=== PATIENT | female | born 1940 | race Caucasian/White ===

== ENCOUNTER → 2016-11-16 | Outpatient (CLI) | payer OTHER ==
[~2016-11-16] MED LIST: CMD5 PO; HYZAAR PO; LPR25 PO; PRLSR20 PO
[2016-11-16 12:40] LABS: ALT/SGPT 14 U/L (12-78); AST/SGOT 17 U/L (15-37); BLOOD UREA NITROGEN 17 mg/dl (7-18); BUN/CREATININE RATIO 17.6 (10-20); CARBON DIOXIDE 29 mmol/L (21-32); CHLORIDE 104 mmol/L (98-107); CREATININE 0.99 mg/dl (0.60-1.20); GLUCOSE 104 mg/dl (70-99); POTASSIUM 3.8 mmol/L (3.5-5.1); SODIUM 139 mmol/L (136-145)
[2016-11-16 12:42] LABS: ALB/GLOB RATIO 0.9 (0.9-2); ALKALINE PHOSPHATASE 58 U/L (45-117)
[2016-11-16 13:22] LABS: ESTIMATED AVERAGE GLUCOSE 134 mg/dl; HA1C FLAG Normal (Normal)
== END | disposition home or self-care (01) ==
LOC: C.LABPVFM 08:50
PROVIDERS: ATTEND Family Medicine
DX: I10 Essential (primary) hypertension (principal); R73.9 Hyperglycemia, unspecified

== ENCOUNTER → 2017-01-27 | Outpatient (CLI) | payer OTHER ==
--- NOTE | 2017-01-27 13:27 | MAMMOGRAPHY REPORT ---
BILATERAL DIGITAL SCREENING MAMMOGRAM WITH CAD: 01/27/2017 CLINICAL HISTORY: Routine screening. Patient has no complaints. TECHNIQUE: Current study was also evaluated with a Computer Aided Detection (CAD) system. Bilateral CC and MLO views were obtained. COMPARISON: Comparison is made to exams dated: 01/22/2016 mammogram, 01/20/2015 mammogram, 01/17/2014 yogi mogram, 01/16/2013 mammogram, 01/16/2012 mammogram, and 01/12/2011 mammogram - [facility] . BREAST COMPOSITION: There are scattered areas of fibroglandular density in both breasts. FINDINGS: No suspicious masses, calcifications, or areas of architectural distortion are noted in ei ther breast. There has been no significant interval change compared to prior exams. Scattered bilater al benign-appearing calcifications are not significantly changed. Bilateral asymmetries are stable. IMPRESSION: ACR BI-RADS CATEGORY 2: BENIGN There is no mammographic evidence of malignancy. A 1 year screening mammogram is recommended. The pa tient will receive written notification of the results. Approximately 10% of breast cancers are not detected with mammography. A negative mammographic report should not delay biopsy if a clinically suggestive mass is present. Joy Rivas M.D. /:01/27/2017 10:52:52 Putty And Patch Worker: Katt MAXWELL(Arabella)(Chiquita)(JAYESH), [facility] letter sent: Normal 1/2 BI-RADS Code: ACR BI-RADS Category 2: Benign
== END | disposition home or self-care (01) ==
LOC: C.MAMM 10:03
PROVIDERS: ATTEND Obstetrics & Gynecology
DX: Z12.31 Encounter for screening mammogram for malignant neoplasm of breast (principal)

== ENCOUNTER → 2017-05-12 | Outpatient (CLI) | payer OTHER ==
[2017-05-12 12:27] LABS: ESTIMATED AVERAGE GLUCOSE 131 mg/dl; HA1C FLAG Normal (Normal)
[2017-05-12 12:52] LABS: ALT/SGPT 13 U/L (12-78); AST/SGOT 12 U/L (15-37); BLOOD UREA NITROGEN 29 mg/dl (7-18); BUN/CREATININE RATIO 26.1 (10-20); CALCIUM 9.6 mg/dl (8.5-10.1); CARBON DIOXIDE 25 mmol/L (21-32); CHLORIDE 107 mmol/L (98-107); GLUCOSE 109 mg/dl (70-99); POTASSIUM 3.5 mmol/L (3.5-5.1); SODIUM 139 mmol/L (136-145)
[2017-05-12 12:55] LABS: ALKALINE PHOSPHATASE 61 U/L (45-117)
== END | disposition home or self-care (01) ==
LOC: C.LABPVFM 12:22
PROVIDERS: ATTEND Family Medicine
DX: I10 Essential (primary) hypertension (principal); R73.9 Hyperglycemia, unspecified; F41.9 Anxiety disorder, unspecified

== ENCOUNTER → 2017-11-08 | Outpatient (CLI) | payer OTHER ==
[2017-11-08 13:38] LABS: HEMOGLOBIN A1C 6.2 % (4.5-5.6)
[2017-11-08 13:56] LABS: ALBUMIN 3.8 gm/dl (3.4-5.0); ALT/SGPT 14 U/L (12-78); BLOOD UREA NITROGEN 19 mg/dl (7-18); CALCIUM 10.3 mg/dl (8.5-10.1); CARBON DIOXIDE 26 mmol/L (21-32); CREATININE 0.91 mg/dl (0.60-1.20); GLUCOSE 103 mg/dl (70-99); POTASSIUM 3.7 mmol/L (3.5-5.1); SODIUM 136 mmol/L (136-145)
[2017-11-08 14:01] LABS: ALKALINE PHOSPHATASE 67 U/L (45-117); AST/SGOT 17 U/L (15-37); TOTAL PROTEIN 7.6 gm/dl (6.4-8.2)
[2017-11-08 14:43] LABS: BASO ABS # 0.05 K/uL (0-0.2); EOS % 1.5 %; EOS ABS # 0.07 K/uL (0-0.5); HEMATOCRIT 34.8 % (37-47); HEMOGLOBIN 10.6 g/dL (12.0-16.0); LYMPH % 20.4 %; LYMPH ABS # 0.98 K/uL (1.2-3.4); MEAN CORPUSCULAR HEMOGLOBIN 22.2 pg (25-34); MEAN CORPUSCULAR HGB CONC 30.5 g/dl (32-36); MEAN PLATELET VOLUME 11.2 fL (7.4-10.4); MONO % 9.1 %; MONO ABS # 0.44 K/uL (0.11-0.59); NEUT ABS # 3.27 K/uL (1.4-6.5); PLATELET COUNT 353 K/uL (130-400); RED CELL DISTRIBUTION WIDTH CV 18.6 % (11.5-14.5); WHITE BLOOD COUNT 4.81 K/uL (4.8-10.8)
== END | disposition home or self-care (01) ==
LOC: C.LABPVFM 12:44
PROVIDERS: ATTEND Family Medicine
DX: K25.9 Gastric ulcer, unspecified as acute or chronic, without hemorrhage or perforation (principal); I10 Essential (primary) hypertension; D68.51 Activated protein C resistance; R73.9 Hyperglycemia, unspecified; G47.00 Insomnia, unspecified; F41.9 Anxiety disorder, unspecified

== ENCOUNTER → 2017-12-06 | Outpatient (CLI) | payer OTHER ==
[2017-12-06 14:40] LABS: BLOOD UREA NITROGEN 13 mg/dl (7-18); CALCIUM 9.5 mg/dl (8.5-10.1); CARBON DIOXIDE 28 mmol/L (21-32); CREATININE 0.98 mg/dl (0.60-1.20); GLUCOSE 105 mg/dl (70-99); POTASSIUM 4.1 mmol/L (3.5-5.1); SODIUM 136 mmol/L (136-145)
[2017-12-06 14:50] LABS: TRANSFERRIN 344 mg/dl (200-360)
== END | disposition home or self-care (01) ==
LOC: C.LABPVFM 09:46
PROVIDERS: ATTEND Family Medicine
DX: E83.52 Hypercalcemia (principal); D64.9 Anemia, unspecified

== ENCOUNTER 2022-10-30 11:25 | Inpatient (IN) ==
[2022-10-30] MEDS ORDERED: FUROSEMIDE 40 MG/4 ML VIAL IV ONE (12:03)
[2022-10-30] MEDS ORDERED: METOPROLOL TARTRATE 1 MG/ML VIAL IV STA (12:21)
[2022-10-30] MEDS ORDERED: NYSTATIN POWDER 15GM BTL EXT STA (12:30)
[2022-10-30 12:37] LABS: Basophils # (auto) 0.06 K/uL (0-0.2); Basophils % (auto) 0.7 %; Eosinophils # (auto) 0.08 K/uL (0-0.50); Eosinophils % (auto) 0.9 %; Hematocrit (blood only) 39.7 % (37.0-47.0); Hemoglobin 13.4 g/dl (12.0-16.0); Immature Granulocytes # (auto) 0.03 K/uL (0.01-0.20); Immature Granulocytes % (auto) 0.3 %; Lymphocytes # (auto) 0.79 K/uL (1.2-3.4); Lymphocytes % (auto) 8.9 %; Mean Corpuscular Hemoglobin 31.9 pg (25.0-34.0); Mean Corpuscular Hgb Conc 33.8 g/dL (32.0-36.0); Mean Corpuscular Volume 94.5 fL (80.0-100.0); Mean Platelet Volume 11.6 fL (9.4-12.4); Monocytes # (auto) 0.75 K/uL (0.11-0.59); Monocytes % (auto) 8.5 %; Neutrophils # (auto) 7.14 K/uL (1.40-6.50); Neutrophils % (auto) 80.7 %; Platelet Count 250 K/uL (130-400); RDW Coefficient of Variation 12.6 % (11.5-14.5); RDW Standard Deviation 43.8 fL (36.4-46.3); White Blood Count 8.85 K/ul (4.8-10.8)
[2022-10-30 12:46] LABS: Albumin Globulin Ratio 1.2 (0.9-2); Albumin Level 3.8 gm/dl (3.4-5.0); BUN Creatinine Ratio 31.7 (10-20); Bilirubin,Total 0.8 mg/dl (0.2-1.0); Calcium 9.8 mg/dl (8.5-10.1); Creatinine Clr Calc Pharmacy 51.1 ml/min; Est GFR (Non-African American) 51.8 ml/min; Globulin 3.1 gm/dl (2.5-4.0); Magnesium 1.5 mg/dl (1.7-2.4); Potassium 4.1 mmol/L (3.5-5.1); Total Protein 6.9 gm/dl (6.0-8.3)
[2022-10-30 12:52] LABS: Troponin I High Sensitivity 8.4 pg/ml (0-14)
--- NOTE | 2022-10-30 13:09 | XRay Report ---
XR chest 1V portable HISTORY: Dyspnea COMPARISON: Chest 06/17/2015. FINDINGS: No pneumothorax. No pleural effusions. The cardiac silhouette remains enlarged. There is a large hiatus hernia again noted. No new focal lung consolidations to suggest a pneumonia. No evidence for pulmonary edema. IMPRESSION: 1. Stable cardiomegaly. 2. Large hiatus hernia, unchanged. ACT 112: Negative or not required by law. Electronically signed by: Anshu Cleaning M.D. 10/30/2022 1:08 PM
[2022-10-30 14:08] LABS: Appearance Urine Clear (Clear); Bacteria Urine Automated 3+ (Negative); Bilirubin Urine Negative (Negative); Blood Urine Negative (Negative); Cast Urine Automated 0 /lpf (0-5); Color Urine Yellow; Epithelial Cell Urine Auto 0-5 /lpf (0-5); Glucose Urine UA Negative (Negative); Ketones Urine Negative (Negative); Leukocyte Esterase Urine Trace (Negative); Nitrite Urine Negative (Negative); Protein Urine Negative (Negative); RBC Urine Automated 0-4 /hpf (0-4); Specific Gravity Urine 1.008 (1.000-1.030); Urobilinogen Urine Negative (Negative); pH Urine 5.5 (4.5-7.5)
[2022-10-30] MEDS: MAGNESIUM SULFATE / D5W 1 GM/100 ML BAG IV SCH ×2 (14:34→15:14)
--- NOTE | 2022-10-30 15:07 | History & Physical Report ---
Date of Service October 30, 2022 Assessment & Plan (1) Edema of right lower leg due to venous stasis: Plan: - No pulmonary edema on CXR, will check complete echo - dorinda Martin - Low sodium diet (2) Atrial fibrillation with RVR: Plan: - Admit to med/tele for monitoring - Check complete echo - Already on Eliquis for the Factor V Leiden and hx of PE/DVT (3) Factor V Leiden mutation: Plan: - Continue Eliquis 2.5 mg BID (4) Benign hypertension: Plan: - Continue home medications (5) Pain of right heel: Plan: - Skin break down and tender to palpation right heel causing patient not to be able to ambulate - Wound evaluation History of Present Illness Chief Complaint: edema bilateral lower legs, pain right heel Primary Care Provider: MD Laverne Connellysarthak Bookertonyajosias is a 81 year old female with a past medical history of Factor V Leiden with previous VTE (PE and DVT) on Eliquis 2.5mg BID, HTN, Obesity and GERD who presented to the ER today for complaints of persistent lower extremity selling and hard to ambulate due to the swelling and also right heel pain. Patient tells me that her leg swelling is mostly chronic but has significantly increased over the past 3 weeks. She states both lower legs have been oozing serous fluid for the past 2-3 weeks. Patient is noted to be up almost 40# from last year. She denies any chest pain, cough, fever, urinary symptoms. She admits to some slight SOB with walking fast, but this is not new. She denies ever having A Fib in the past. I do not see any previous A Fib on previous EKGs and she has not had any echo in this EMR system. Allergies Allergy/AdvReac Type Severity Reaction Status Date / Time Penicillins Allergy Intermediate Hives Verified 10/30/22 15:07 Home Medications Medication Instructions Recorded Confirmed Type metoprolol tartrate 25 mg tablet 25 mg PO BID #60 tabs 11/24/21 10/30/22 Rx losartan 100 1 tab PO DAILY #90 tabs 01/25/22 10/30/22 Rx mg-hydrochlorothiazide 12.5 mg tablet apixaban 2.5 mg tablet (Eliquis) 2.5 mg PO BID #60 tabs 01/05/23 03/19/23 Rx omeprazole 20 mg capsule,delayed 20 mg PO DAILY #90 caps 10/25/22 10/30/22 Rx release Past Med/Surg History Medical History Anemia Bilateral pulmonary embolism DVT (deep venous thrombosis) Surgical History No history of previous surgery Family History Denies family history of Ovarian cancer Prostate cancer Myocardial infarction Breast cancer Colorectal cancer Social History Smoking Status: Never smoker Second Hand Exposure: No; Hx Alcohol Use: No Hx Substance Use: No Preferred Language: Rwandan Communication Ability: Effective Hearing Ability: Hard of Hearing Department Coordinator Required: No Beliefs That Will Affect Care: None marital status: Current Living Situation: Alone current occupational status: retired How many Children do You have: 2 Feels Safe at Home: Yes Childhood Exposure to Second-Hand Smoke: No caffeine: Yes (soda ) Dental Care, Regularly: No Physical Activity Frequency: Does not Exercise Seatbelt Use: always Sunscreen Use: No Review of Systems Constitutional: + weight gain; no fever and no chills Respiratory: no cough, no dyspnea and no wheezing Cardiovascular: + edema; no chest pain, no syncope and no calf pain A dditional Comments: Admits to mild SOB when trying to walk fast Gastrointestinal: no abdominal pain, no nausea and no vomiting Genitourinary: no dysuria, no difficulty urinating, no urinary frequency, no urinary hesitancy and no urinary urgency Integumentary: Thickened toe nails Right first toe Painful heels Physical Exam Constitutional: well nourished, + obese and + overweight; no acute distress Neck: trachea midline, no thyromegaly Respiratory: normal respiratory effort, lungs clear to auscultation Cardiovascular: Rate/Rhythm: + irregularly irregular Extremities: + edema and + varicosities; no calf tenderness mild delay in capillary refill Gastrointestinal (Abdomen): normal bowel sounds, soft, nontender, no hepatosplenomegaly Skin: venous stasis changes legs, no warmth extremities cool to touch Left heel with skin changes, possible early venous stasis ulcer Right heel with calcified area Psychiatric: A+Ox3, euthymic affect Results & Data Results & Data Vital Signs (Past 12 Hours) Vital Signs Temp Pulse Pulse Resp BP BP Pulse Ox 10/30/22 14:08 88 18 133/68 95 10/30/22 12:27 85 19 94 10/30/22 12:24 108 H 151/80 H 10/30/22 12:07 107 H 10/30/22 11:30 36.6 C 114 H 20 148/68 H 96 O2 Del Method 10/30/22 14:08 Room Air 10/30/22 12:27 Room Air 10/30/22 12:24 10/30/22 12:07 10/30/22 11:30 Room Air Laboratory Results Reviewed labs, CBC normal no leukocytosis and H&H, platelets also normal. Creatinine 1.01, Magnesium low at 1.5 and was replaced in the ED. LFTs are normal U/A with 3+ bacteria. Await C&S Diagnostic Findings Chest X-Ray 10/30/22 12:20 XR chest 1V portable HISTORY: Dyspnea COMPARISON: Chest 06/17/2015. FINDINGS: No pneumothorax. No pleural effusions. The cardiac silhouette remains enlarged. There is a large hiatus hernia again noted. No new focal lung consolidations to suggest a pneumonia. No evidence for pulmonary edema. IMPRESSION: 1. Stable cardiomegaly. 2. Large hiatus hernia, unchanged. ACT 112: Negative or not required by law. Electronically signed by: Anshu Cleaning M.D. 10/30/2022 1:08 PM Supervising Physician Co-Signing Physician Notes Patient seen and examined, chart reviewed, case discussed with Ivana Evans PA-C and I agree with the assessment and plan as above except as otherwise noted Labs and images reviewed Soo is a 81-year-old female with history of factor V Leiden and prior PE and DVT on Eliquis 2.5 mg twice daily, hypertension, obesity, and GERD and scented for evaluation of bilateral worsening lower extremity edema and is found to have new A-fib. Patient did not have a history of A-fib prior to this, notes she was on Eliquis for DVT prophylaxis in the setting of factor V Leiden and past PE. Significant bilateral lower extremity edema with pitting, no orthopnea or shortness of breath. Has rapidly worsened over the last 3 weeks. Does have a healed pressure ulcer on her right heel. She denies chest pain and chest pressure, denies history of heart disease. Given her lack of pulmonary symptoms, history of chronic venous stasis may be worsened venous stasis in setting of fluid overload however will follow an echo to evaluate for heart failure. Patient is newly found to be in A-fib, may have underlying rate related cardiomyopathy although her lungs remain clear. Low suspicion for DOAC failure causing bilateral leg swelling from venous thromboembolism; however with history of factor V if she not improving with venous stasis treatments can order bilateral Dopplers. Recommend to continue venous stasis treatments, leg elevations, gentle wrap to promote fluid mobilization for effective diuresis. Wound care consulted for heel ulcer above. Patient is rate controlled with her A-fib at time of admission. Echo pending, agree with assessment and management above PG Care Time/CCT Total # of Minutes Spent Total Time Spent with Patient: Total time spent is greater than 50% in coordination of care (as documented) at patient's floor/unit and/or counseling patient: Coding Level of Care Code 21986 INT INP/OBS CARE 2/55MIN Diagnoses Edema of right lower leg due to venous stasis I87.2; R60.0 Atrial fibrillation with RVR I48.91 Factor V Leiden mutation D68.51 Benign hypertension I10 Pain of right heel M79.671
[2022-10-30] MEDS: METOPROLOL TARTRATE 25 MG TAB PO SCH (21:05)
[2022-10-30] MEDS: APIXABAN 2.5 MG TAB PO SCH (21:05)
[2022-10-31] MEDS: ACETAMINOPHEN 325 MG TAB PO PRN ×2 (04:10→13:25)
[2022-10-31 07:13] LABS: Hematocrit (blood only) 34.3 % (37.0-47.0); Hemoglobin 11.6 g/dl (12.0-16.0); Mean Corpuscular Hgb Conc 33.8 g/dL (32.0-36.0); Mean Corpuscular Volume 94.5 fL (80.0-100.0); Mean Platelet Volume 11.5 fL (9.4-12.4); Platelet Count 234 K/uL (130-400); RDW Coefficient of Variation 12.5 % (11.5-14.5); RDW Standard Deviation 43.9 fL (36.4-46.3); Red Blood Count 3.63 M/uL (4.20-5.40); White Blood Count 7.52 K/ul (4.8-10.8)
[2022-10-31 07:40] LABS: BUN Creatinine Ratio 28.4 (10-20); Calcium 9.3 mg/dl (8.5-10.1); Creatinine Clr Calc Pharmacy 45.3 ml/min; Est GFR (African American) 59.3 ml/min; Est GFR (Non-African American) 51.2 ml/min; Magnesium 1.7 mg/dl (1.7-2.4); Potassium 3.7 mmol/L (3.5-5.1)
[2022-10-31] MEDS: APIXABAN 2.5 MG TAB PO SCH (08:00)
[2022-10-31] MEDS: METOPROLOL TARTRATE 25 MG TAB PO SCH ×3 (08:00→22:42)
[2022-10-31] MEDS ORDERED: LOSARTAN POTASSIUM 50 MG TAB PO SCH (09:00)
[2022-10-31] MEDS ORDERED: hydroCHLOROthiazide 25 MG TAB PO SCH (09:00)
--- NOTE | 2022-10-31 10:51 | Electrocardiogram Report ---
Test Reason : Blood Pressure : / mmHG Vent. Rate : 105 BPM Atrial Rate : 113 BPM P-R Int : 000 ms QRS Dur : 102 ms QT Int : 304 ms P-R-T Axes : 000 063 020 degrees QTc Int : 401 ms Poor data quality, interpretation may be adversely affected Atrial fibrillation with rapid ventricular response Incomplete right bundle branch block Abnormal ECG When compared with ECG of 16-JUN-2019 15:39, Atrial fibrillation has replaced Sinus rhythm Confirmed by Jakob St ([id number]) on 10/31/2022 10:51:07 AM Referred By: REFERRED SELF Confirmed By:Henrique St
--- NOTE | 2022-10-31 11:29 | Ultrasound Report ---
US venous doppler LE BI CLINICAL HISTORY: h/o DVT; worsening edema; eval new DVT TECHNIQUE: Bilateral lower extremity real-time compression venous ultrasound with Color Doppler imagi ng. Utilizing real-time ultrasonic imaging multiple real time high-resolution ultrasonic images with compression and noncompression maneuvers of the deep venous system in addition to color doppler imagi ng were performed from the common femoral vein through the proximal calf veins. COMPARISON: Comparison is made to bilateral lower extremity Doppler ultrasound 06/17/2015 FINDINGS/IMPRESSION: There is a small chronic appearing deep venous thrombus in the right superficial femoral vein us. The popliteal vein is unremarkable. Posterior tibial and peroneal veins are not well seen but there is s uggestion of patent flow. There is minimal flow in the left superficial femoral vein compatible with a subacute to acute thromb us in the mid to distal vein. No flow is seen in the left popliteal, posterior tibial, or peroneal ve ins. The anterior tibial vein appears patent. Bilateral popliteal cysts are seen. ACT 112: Negative or not required by law. Electronically signed by: Ulises Ridley M.D. 10/31/2022 11:28 AM
--- NOTE | 2022-10-31 11:54 | XCELERA ---
[id number] \\[id number]_[id number]
[2022-10-31] MEDS ORDERED: Heparin IV Adult Wt-Based Standard *NO* Bolus Protocol IV SCH (12:30)
[2022-10-31] MEDS ORDERED: HEPARIN SODIUM/DEXTROSE 25,000 UNITS/500 ML BAG IV SCH (12:45)
--- NOTE | 2022-10-31 14:33 | Hospitalist Progress Note ---
Date of Service October 31, 2022 Assessment & Plan (1) DVT, bilateral lower limbs: Plan: EXTENSIVE b/l DVTs noted on dopplers from 2015 then a few weeks ago she developed worsening edema of legs dopplers today show some new, acute-subacute DVTs b/l she had been on Eliquis 2.5mg BID for 1-2 years I would not consider this an "Eliquis failure" she likely needs to be on the 5mg BID dosing indefinitely (and now has a 2nd indication for anticoagulation due to a.fib) I spoke informally with our anticoagulation rn clinical resource, Dr Deidra Tsai we will go back to 10mg BID of Eliquis x 7 days, then decrease to 5mg BID thereafter - and take indefinitely no indication to switch to coumadin or lovenox at this time today I placed her on heparin infusion while determining best course of action - will run this overnight, then stop in am and resume Eliquis at 10mg CTA chest without central pulmonary emboli; cannot rule out smaller emboli but either way she will be on full-strength anticoagulation (2) Edema of both legs: Plan: likely 2nd to acute/chronic DVTs, venous insufficiency (has numerous spider veins & varicosities), and pulmonary HTN I cannot rule out an element of acute HFpEF but less likely she did receive IV lasix overnight x 1 HCTZ placed on hold will start lasix 20mg po daily, first dose now (3) Atrial fibrillation with RVR: Plan: based on records this is the first time a.fib has been identified she converted back to NSR before transferring from ER to the floor yesterday NSR since then she is already on beta mary already on Eliquis echo findings noted cardiology consult for this + pulmonary HTN (4) Pulmonary hypertension: Plan: severe PA pressure 50-60 on echo today I suspected her prior PE event in 2014 may have contributed; EXTENSIVE b/l PEs at that time can't rule out sleep-disordered breathing contributing to pulmonary HTN will need formal 2-step at discharge to see if ambulatory O2 is needed in light of new onset a.fib and pulmonary HTN will ask cardiology to see her in consult; would benefit from following with cardiology post-d/c (5) Factor V Leiden mutation: Plan: discovered 2014 during extensive DVT/PE event heterozygous for such told her son at bedside today he should be tested discussed ramifications of Factor 5 Leiden mutation (6) Benign hypertension: Plan: BPs are low-normal stop ARB stop HCTZ will be using lasix low-dose for edema, etc (7) Pain of right heel: Plan: check heel x-rays of right heel to r/o fracture, etc wound care consult appreciated this looks like a tissue injury from impaired walking or other injury? would likely benefit from an orthopedic shoe (8) Asymptomatic bacteriuria: Plan: no symptoms, afebrile, normal wbc count, eating 100% meals would not Rx at this time (9) Hiatal hernia: Plan: large minimal symptoms from such no dysphagia or signs of aspiration cont PPI (10) Chronic kidney disease, stage 3a: Plan: baseline CrCl 40s/50s bmp AM for stability (11) Osteoarthritis of knees, bilateral: Plan: severe based on exam findings could consider voltaren gel qid prn Plan family extensively updated at bedside complex care coordination with high risk medications, speaking to consultants, etc Admission and Anticipated Discharge Date Admission Date: October 30, 2022 Subjective prior to my visit with patient I had ordered b/l LE venous dopplers -- these returned + for acute/subacute DVT as well as likely chronic DVT during my bedside rounds I went over the doppler results in great detail we discussed her Factor V Leiden mutation that was discovered in 2014 - she was not aware of this finding she told me immediately "I'm not going back on that warfarin." at some point in the past she got "sick of being on warfarin and going to the doctor all the time" and she was ultimately transitioned over to Eliquis 2.5mg BID she reports mild ROLDAN over the last few weeks/months but no worse than baseline it is usually with walking up stairs or doing heavy exertional activity she c/o b/l knee pain - chronic - makes walking difficult we talked about the a.fib that was discovered upon presentation no prior a.fib to her knowledge with respect to urine cx growing bacteria - has good appetite, no fever, no dysuria, no urinary symptoms of any kind 2nd visit to bedside later in the day --- pt's son, grandson, and [id number] were at bedside discussed results from echo, b/l dopplers of legs, CTA chest, and plan of care Review of Systems Review of Systems: gen - no fevers, good appetite (eating 100% meals) cv - no chest pain, no pleuritic pain pulm - no cough, +ROLDAN, no dyspnea at rest GI - no abd pain, occasional reflux only - no LUTS Physical Exam Physical Exam: gen - obese, NAD, pleasant ears - hearing impaired (severe) mouth - MMM neck - JVD present heart - RRR, s1 s2, 2/6 systolic murmur LLSB lungs - CTA b/l, no rales, no wheezing ext - 1+ edema b/l, pulses 2+ b/l musculo - severe OA changes of knees with crepitus skin - deep tissue injury to right heel, no cellulitis; numerous spider veins of both legs; some varicosities as well Results & Data Results & Data Vital Signs (Past 12 Hours) Vital Signs Temp Pulse Pulse Resp BP Pulse Ox O2 Del Method 10/31/22 14:25 36.8 C 83 18 101/66 90 Room Air 10/31/22 05:59 87 10/31/22 07:43 Room Air 10/31/22 07:26 37.3 C 97 H 18 132/80 90 Room Air 10/31/22 03:08 37.4 C 88 18 110/67 91 Room Air Laboratory Results Laboratory Results - last 24 hr 10/30/22 10/31/22 10/31/22 15:50 05:56 05:56 WBC 7.52 RBC 3.63 L Hgb 11.6 L Hct 34.3 L MCV 94.5 MCH 32.0 MCHC 33.8 RDW Std Deviation 43.9 RDW Coeff of Gabbie 12.5 Plt Count 234 MPV 11.5 Sodium 139 Potassium 3.7 Chloride 104 Carbon Dioxide 29 Anion Gap 6 BUN 29 H Creatinine 1.02 Est Cr Clr Drug Dosing 45.3 Est GFR ( Amer) 59.3 Est GFR (Non-Af Amer) 51.2 BUN/Creatinine Ratio 28.4 H Glucose 89 Calcium 9.3 Magnesium 1.7 SARS-CoV-2, RNA, NAAT NEGATIVE Diagnostic Findings Venous Doppler Study 10/31/22 09:22 US venous doppler LE BI CLINICAL HISTORY: h/o DVT; worsening edema; eval new DVT TECHNIQUE: Bilateral lower extremity real-time compression venous ultrasound with Color Doppler imaging. Utilizing real-time ultrasonic imaging multiple real time high-resolution ultrasonic images with compression and noncompression maneuvers of the deep venous system in addition to color doppler imaging were performed from the common femoral vein through the proximal calf veins. COMPARISON: Comparison is made to bilateral lower extremity Doppler ultrasound 06/17/2015 FINDINGS/IMPRESSION: There is a small chronic appearing deep venous thrombus in the right superficial femoral vein us. The popliteal vein is unremarkable. Posterior tibial and peroneal veins are not well seen but there is suggestion of patent flow. There is minimal flow in the left superficial femoral vein compatible with a subacute to acute thrombus in the mid to distal vein. No flow is seen in the left popliteal, posterior tibial, or peroneal veins. The anterior tibial vein appears patent. Bilateral popliteal cysts are seen. ACT 112: Negative or not required by law. Electronically signed by: Ulises Ridley M.D. 10/31/2022 11:28 AM Chest CTA 10/31/22 14:31 CT angio chest PE protocol CT DOSE: 509.40 mGycm HISTORY: 81 years-old Female with extensive b/l DVTs; eval for PE. Screening study in a patient with no acute chest complaints and extensive lower extremity DVT. TECHNIQUE: Multiple CTA images of the chest were obtained after the intravenous administration of 117 ml Optiray. Coronal and sagittal MIPS were obtained from the axial data set and were submitted for review. All measurements were obtained according to NASCET criteria. A dose lowering technique was utilized adhering to the principles of ALARA. COMPARISON: Duplex venous Doppler study of same day, CTA chest 06/17/2015 FINDINGS: CTA: Moderate to marked cardiomegaly. No pericardial effusion. Atherosclerosis of the thoracic aorta without aneurysm or dissection. There is patency of the imaged great vessels. Descending thoracic aortic tortuosity. Reflux of contrast into the IVC and hepatic veins. Suboptimal evaluation of the pulmonary artery secondary to respiratory motion artifact. No central pulmonary emboli are identified. CT CHEST: Unremarkable thyroid. No pathologically enlarged lymph nodes identified. Trace right pleural effusion. No pneumothorax, pleural effusion or overt pulmonary edema. Mild subsegmental consolidation of the lung bases suggestive of atelectasis. The central airways appear patent. Large hiatal hernia with esophageal wall thickening. The majority of the stomach is present within the thoracic cavity. Unremarkable soft tissues. Degenerative changes of the shoulders and spine. No acute fracture or destructive bone lesion identified. IMPRESSION: 1. Limited exam secondary to respiratory motion artifact. 2. Cardiomegaly without central pulmonary emboli identified. 3. Large hiatal hernia. 4. Trace right pleural effusion. ACT 112: Negative or not required by law. The above report was generated using voice recognition software. It may contain grammatical, syntax or spelling errors. Electronically signed by: Dustin Zapata M.D. 10/31/2022 4:50 PM PG Care Time/CCT Total # of Minutes Spent Total Time Spent with Patient: Total time spent is greater than 50% in coordination of care (as documented) at patient's floor/unit and/or counseling patient: Coding Level of Care Code 65915 SUB INP/OBS CARE 3/50MIN Diagnoses DVT, bilateral lower limbs I82.403 Edema of both legs R60.0 Atrial fibrillation with RVR I48.91 Pulmonary hypertension I27.20 Factor V Leiden mutation D68.51 Benign hypertension I10 Pain of right heel M79.671 Asymptomatic bacteriuria R82.71 Hiatal hernia K44.9 Chronic kidney disease, stage 3a N18.31 Osteoarthritis of knees, bilateral M17.0
[2022-10-31] MEDS ORDERED: OPTIRAY 320 125ml IV ONE (16:38)
--- NOTE | 2022-10-31 16:52 | CT Scan Report ---
CT angio chest PE protocol CT DOSE: 509.40 mGycm HISTORY: 81 years-old Female with extensive b/l DVTs; eval for PE. Screening study in a patient wit h no acute chest complaints and extensive lower extremity DVT. TECHNIQUE: Multiple CTA images of the chest were obtained after the intravenous administration of 117 ml Optiray. Coronal and sagittal MIPS were obtained from the axial data set and were submitted for review. All measurements were obtained according to NASCET criteria. A dose lowering technique was u tilized adhering to the principles of ALARA. COMPARISON: Duplex venous Doppler study of same day, CTA chest 06/17/2015 FINDINGS: CTA: Moderate to marked cardiomegaly. No pericardial effusion. Atherosclerosis of the thoracic aorta witho ut aneurysm or dissection. There is patency of the imaged great vessels. Descending thoracic aortic t ortuosity. Reflux of contrast into the IVC and hepatic veins. Suboptimal evaluation of the pulmonary artery secondary to respiratory motion artifact. No central pulmonary emboli are identified. CT CHEST: Unremarkable thyroid. No pathologically enlarged lymph nodes identified. Trace right pleural effusion . No pneumothorax, pleural effusion or overt pulmonary edema. Mild subsegmental consolidation of the lung bases suggestive of atelectasis. The central airways appear patent. Large hiatal hernia with esophageal wall thickening. The majority of the stomach is present within th e thoracic cavity. Unremarkable soft tissues. Degenerative changes of the shoulders and spine. No acu te fracture or destructive bone lesion identified. IMPRESSION: 1. Limited exam secondary to respiratory motion artifact. 2. Cardiomegaly without central pulmonary emboli identified. 3. Large hiatal hernia. 4. Trace right pleural effusion. ACT 112: Negative or not required by law. The above report was generated using voice recognition software. It may contain grammatical, syntax o r spelling errors. Electronically signed by: Dustin Zapata M.D. 10/31/2022 4:50 PM
[2022-10-31] MEDS ORDERED: PANTOprazole 40 MG TAB PO STA (17:54)
[2022-10-31 19:27] LABS: Partial Thromboplastin Ratio 1.6; Partial Thromboplastin Time 44.2 Seconds (21.0-31.0)
[2022-10-31] MEDS: FUROSEMIDE 20 MG TAB PO SCH (22:40)
[2022-11-01 02:39] LABS: Hematocrit (blood only) 33.7 % (37.0-47.0); Hemoglobin 11.3 g/dl (12.0-16.0); Mean Corpuscular Hemoglobin 31.7 pg (25.0-34.0); Mean Corpuscular Hgb Conc 33.5 g/dL (32.0-36.0); Mean Corpuscular Volume 94.7 fL (80.0-100.0); Mean Platelet Volume 11.4 fL (9.4-12.4); Platelet Count 196 K/uL (130-400); RDW Coefficient of Variation 12.6 % (11.5-14.5); RDW Standard Deviation 43.6 fL (36.4-46.3); Red Blood Count 3.56 M/uL (4.20-5.40); White Blood Count 6.81 K/ul (4.8-10.8)
[2022-11-01 03:35] LABS: Partial Thromboplastin Time 54.4 Seconds (21.0-31.0)
[2022-11-01] MEDS: MAGNESIUM SULFATE / D5W 1 GM/100 ML BAG IV SCH ×2 (08:05→09:50)
[2022-11-01 08:51] LABS: BUN Creatinine Ratio 25.6 (10-20); Calcium 9.7 mg/dl (8.5-10.1); Creatinine Clr Calc Pharmacy 51.4 ml/min; Est GFR (Non-African American) 59.5 ml/min; Potassium 3.8 mmol/L (3.5-5.1)
[2022-11-01] MEDS ORDERED: [UNRECOGNIZED DRUG - REMARK] ONE (09:00)
--- NOTE | 2022-11-01 09:34 | XRay Report ---
XR calcaneus RT min 2V HISTORY: 81 years-old Female R heel pain, R heel tissue injury soft tissue ulcer of the right hindfo ot COMPARISON: None TECHNIQUE: 2 views of the right calcaneus FINDINGS: Demineralized appearance of the bones. Moderate sized enthesophytes of the calcaneus with moderate os teoarthritis. Soft tissue ulcer of the posterior heel pad. No acute fracture, dislocation or acute os seous erosions identified. IMPRESSION: Soft tissue ulcer without osseous erosion identified to suggest acute osteomyelitis. ACT 112: Negative or not required by law. The above report was generated using voice recognition software. It may contain grammatical, syntax o r spelling errors. Electronically signed by: Dustin Zapata M.D. 11/01/2022 9:33 AM
[2022-11-01] MEDS: METOPROLOL TARTRATE 25 MG TAB PO SCH (09:41)
[2022-11-01] MEDS: PANTOprazole 40 MG TAB PO SCH (09:42)
[2022-11-01] MEDS: FUROSEMIDE 20 MG TAB PO SCH (09:42)
[2022-11-01] MEDS: APIXABAN 5 MG TABLET PO SCH ×2 (09:48→22:44)
--- NOTE | 2022-11-01 12:38 | Cardiology Consultation ---
Date of Consultation November 01, 2022 Assessment & Plan (1) Atrial fibrillation with RVR: (2) Aortic stenosis: (3) Pulmonary hypertension: Plan 1. Atrial fibrillation: She actually transition from atrial fibrillation to sinus rhythm to atrial flutter to sinus rhythm. This is likely related to her age and history of hypertension. She had few symptoms associated with the arrhythmia. Overall rate control was quite acceptable also. I do not think there is an indication for rhythm control based on how well the arrhythmia was tolerated. I would suggest increasing her metoprolol tartrate to 50 mg twice a day. She has been started on appropriately dosed anticoagulation for atrial fibrillation. 2. Aortic stenosis: Mild. Not affecting LV systolic function. No symptoms. This may never be a concern in the course of her lifetime. 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 She states that she has an element of mild anemia most times but developed worsening edema and weeping from her legs. She denies any pain in the legs. She denied worsening breathing difficulty. No dizziness or lightheadedness. She ambulates with a walker and has not report any change in her exercise tolerance recently. She has not been aware of any palpitations or rapid heartbeats. She does have a blood pressure cuff at home but did not report any notably high heart rates. She does report some variability in her blood pressure at times. Allergies Allergy/AdvReac Type Severity Reaction Status Date / Time Penicillins Allergy Intermediate Hives Verified 10/30/22 15:07 Home Medications Medication Instructions Recorded Confirmed Type metoprolol tartrate 25 mg tablet 25 mg PO BID #60 tabs 11/24/21 10/30/22 Rx losartan 100 1 tab PO DAILY #90 tabs 01/25/22 10/30/22 Rx mg-hydrochlorothiazide 12.5 mg tablet apixaban 2.5 mg tablet (Eliquis) 2.5 mg PO BID #60 tabs 08/18/22 10/30/22 Rx omeprazole 20 mg capsule,delayed 20 mg PO DAILY #90 caps 10/25/22 10/30/22 Rx release Patient History Medical History (Updated 11/01/22 @ 14:[address] MD) Anemia Bilateral pulmonary embolism DVT (deep venous thrombosis) Surgical History No history of previous surgery Family History Denies family history of Ovarian cancer Prostate cancer Myocardial infarction Breast cancer Colorectal cancer Social History Smoking Status: Never smoker Second Hand Exposure: No; Hx Alcohol Use: No Hx Substance Use: No Preferred Language: Gabonese Communication Ability: Effective Hearing Ability: Hard of Hearing Stitcher Operator Required: No Beliefs That Will Affect Care: None marital status: Current Living Situation: Alone current occupational status: retired How many Children do You have: 2 Feels Safe at Home: Yes Childhood Exposure to Second-Hand Smoke: No caffeine: Yes (soda ) Dental Care, Regularly: No Physical Activity Frequency: Does not Exercise Seatbelt Use: always Sunscreen Use: No Assistive Devices: Walker and Other Review of Systems Review of Systems: Per HPI Physical Exam Physical Exam: She is alert and oriented x3. Mood affect appear normal. She answered all questions appropriately. Slightly hard of hearing HEENT: Sclerae are anicteric. Pupils are equal and reactive to light and accommodation. Extraocular movements were intact. Neuro: Cranial nerves intact Lungs: Lungs are clear to auscultation bilaterally. There are no rales wheezes or rhonchi. She has normal respiratory effort without use of accessory muscles. There is normal pulmonary excursion. Cardiac: The rhythm was irregular. S1 and S2 were normal. Crescendo systolic murmur. The PMI was not markedly displaced on palpation. Extremities: Patient has bilateral radial pulses that are equal in intensity. There is no evidence cyanosis or clubbing. Moderate bilateral lower extremity edema Skin: There are no rashes noted on examination today. Results & Data Vital Signs (Past 12 Hours) Vital Signs Temp Pulse Pulse Resp BP Pulse Ox O2 Del Method 11/01/22 07:40 36.8 C 84 16 129/72 95 Nasal Cannula 11/01/22 07:34 Nasal Cannula 11/01/22 05:59 83 03/21/23 04:15 36.6 C 99 H 20 159/85 H 97 Nasal Cannula 11/01/22 01:12 Nasal Cannula O2 Flow Rate 11/01/22 07:40 2 11/01/22 07:34 2 11/01/22 05:59 11/01/22 04:15 2 11/01/22 01:12 2 Laboratory Results Abnormal Lab Results 10/31/22 11/01/22 11/01/22 18:39 01:50 01:50 WBC 6.81 RBC 3.56 L Hgb 11.3 L Hct 33.7 L MCV 94.7 MCH 31.7 MCHC 33.5 RDW Std Deviation 43.6 RDW Coeff of Gabbie 12.6 Plt Count 196 MPV 11.4 APTT 44.2 H PTT Ratio 1.6 Sodium Potassium Chloride Carbon Dioxide Anion Gap BUN Creatinine Est Cr Clr Drug Dosing Est GFR ( Amer) Est GFR (Non-Af Amer) BUN/Creatinine Ratio Glucose Calcium Magnesium 1.5 L TSH 11/01/22 11/01/22 11/01/22 01:50 08:03 08:03 WBC RBC Hgb Hct MCV MCH MCHC RDW Std Deviation RDW Coeff of Gabbie Plt Count MPV APTT 54.4 H* PTT Ratio 2.0 Sodium 138 Potassium 3.8 Chloride 99 Carbon Dioxide 34 H Anion Gap 5 BUN 23 Creatinine 0.90 Est Cr Clr Drug Dosing 51.4 Est GFR ( Amer) 69.0 Est GFR (Non-Af Amer) 59.5 BUN/Creatinine Ratio 25.6 H Glucose 104 H Calcium 9.7 Magnesium TSH 2.728 Diagnostic Findings Echocardiogram performed 10/31/2022: Normal LV systolic function with ejection fraction 55-60%. Mild aortic stenosis. Elevated right ventricular systolic pressure estimated at 50-60 mm of mercury Venous Doppler study suggesting acute DVT involving the left superficial femoral vein PG Care Time/CCT Total # of Minutes Spent Total Time Spent with Patient: Total time spent is greater than 50% in coordination of care (as documented) at patient's floor/unit and/or counseling patient: Coding Level of Care Code 71829 INT INP/OBS CARE 3/75MIN Diagnoses Atrial fibrillation with RVR I48.91 Aortic stenosis I35.0 Pulmonary hypertension I27.20
--- NOTE | 2022-11-01 14:46 | Hospitalist Progress Note ---
Date of Service November 01, 2022 Assessment & Plan (1) DVT, bilateral lower limbs: Plan: EXTENSIVE b/l DVTs noted on dopplers from 2015 then a few weeks ago she developed worsening edema of legs dopplers today show some new, acute-subacute DVTs b/l she had been on Eliquis 2.5mg BID for 1-2 years this is unlikely to be an "Eliquis failure" she likely needs to be on the 5mg BID dosing indefinitely (and now has a 2nd indication for anticoagulation due to a.fib) Dr. Cox spoke informally with our anticoagulation clinical data management manager, Dr Deidra Tsai we will go back to 10mg BID of Eliquis x 7 days, then decrease to 5mg BID thereafter - and take indefinitely no indication to switch to coumadin or lovenox at this time she was placed her on heparin infusion while determining best course of action - this was run overnight, then stopped this am and resumed Eliquis at 10mg CTA chest without central pulmonary emboli; cannot rule out smaller emboli but either way she will be on full-strength anticoagulation Present on Admission?: Yes (2) Edema of both legs: Plan: likely 2nd to acute/chronic DVTs, venous insufficiency (has numerous spider veins & varicosities), and pulmonary HTN I cannot rule out an element of acute HFpEF but less likely she did receive IV lasix overnight x 1 HCTZ placed on hold started lasix 20mg po daily, first dose given (3) Atrial fibrillation with RVR: Plan: based on records this is the first time a.fib has been identified she converted back to NSR before transferring from ER to the floor yesterday NSR since then she is already on beta mary, dose to be increased by cardio already on Eliquis echo LVSF - nl mild valvular aortic stenosis Rt vent systolic pressure 50-60 cardiology consult appreciated (4) Pulmonary hypertension: Plan: severe PA pressure 50-60 on echo I suspected her prior PE event in 2014 may have contributed; EXTENSIVE b/l PEs at that time can't rule out sleep-disordered breathing contributing to pulmonary HTN will need formal 2-step at discharge to see if ambulatory O2 is needed in light of new onset a.fib and pulmonary HTN; would benefit from following with cardiology post-d/c, as per Dr. St, she is to follow with him, Duong St MD (5) Factor V Leiden mutation: Plan: discovered 2014 during extensive DVT/PE event heterozygous for such reinforced with son that he should be tested discussed ramifications of Factor 5 Leiden mutation (6) Benign hypertension: Plan: BPs are low-normal stop ARB stop HCTZ will be using lasix low-dose for edema, etc (7) Pain of right heel: Plan: check heel x-rays of right heel to r/o fracture, etc wound care consult appreciated this looks like a tissue injury from impaired walking or other injury? would likely benefit from an orthopedic shoe (8) Asymptomatic bacteriuria: Plan: no symptoms, afebrile, normal wbc count, eating 100% meals would give short term treatment, in pt with reduced ambulation (9) Hiatal hernia: Plan: large minimal symptoms from such no dysphagia or signs of aspiration cont PPI (10) Chronic kidney disease, stage 3a: Plan: baseline CrCl 40s/50s bmp AM for stability (11) Osteoarthritis of knees, bilateral: Plan: severe based on exam findings could consider voltaren gel qid prn (12) Ambulatory dysfunction: Plan: Physical therapy is recommending SNF prior to dc. Discussed with son, Isaac, they would be in favor of this. Pt was resistant when I spoke to her, Isaac felt that she will follow recommendations of her sons. Plan family extensively updated at bedside by Dr. Cox complex care coordination Admission and Anticipated Discharge Date Admission Date: November 01, 2022 Subjective prior to the visit with patient Dr. Cox had ordered b/l LE venous dopplers -- these returned + for acute/subacute DVT as well as likely chronic DVT during his bedside rounds he went over the doppler results in great detail He discussed her Factor V Leiden mutation that was discovered in 2014 - she was not aware of this finding she told him immediately "I'm not going back on that warfarin." at some point in the past she got "sick of being on warfarin and going to the doctor all the time" and she was ultimately transitioned over to Eliquis 2.5mg BID she reports mild ROLDAN over the last few weeks/months but no worse than baseline it is usually with walking up stairs or doing heavy exertional activity she c/o b/l knee pain - chronic - makes walking difficult we talked about the a.fib that was discovered upon presentation no prior a.fib to her knowledge with respect to urine cx growing bacteria - has good appetite, no fever, no dysuria, no urinary symptoms of any kind, probably asymptomatic UTI, but as pansensitive, will treat with short course, low dose Cipro discussed results from echo, b/l dopplers of legs, CTA chest, and plan of care Review of Systems Constitutional: afebrile Respiratory: no sob Cardiovascular: Additional Comments: no chest pain Physical Exam Physical Exam: WDWN WF in NAD Constitutional: afebrile Cardiovascular: Reg, chronic edema Neurologic: awake, alert Results & Data Results & Data Vital Signs (Past 12 Hours) Vital Signs Temp Pulse Pulse Resp BP Pulse Ox O2 Del Method 11/01/22 07:40 36.8 C 84 16 129/72 95 Nasal Cannula 11/01/22 07:34 Nasal Cannula 11/01/22 05:59 83 11/01/22 04:15 36.6 C 99 H 20 159/85 H 97 Nasal Cannula O2 Flow Rate 11/01/22 07:40 2 11/01/22 07:34 2 11/01/22 05:59 11/01/22 04:15 2 PG Care Time/CCT Total # of Minutes Spent Total Time Spent with Patient: Total time spent is greater than 50% in coordination of care (as documented) at patient's floor/unit and/or counseling patient: Coding Level of Care Code 75790 SUB INP/OBS CARE 2/35MIN Diagnoses DVT, bilateral lower limbs I82.403 Edema of both legs R60.0 Atrial fibrillation with RVR I48.91 Pulmonary hypertension I27.20 Factor V Leiden mutation D68.51 Benign hypertension I10 Pain of right heel M79.671 Asymptomatic bacteriuria R82.71 Hiatal hernia K44.9 Chronic kidney disease, stage 3a N18.31 Osteoarthritis of knees, bilateral M17.0 Ambulatory dysfunction R26.2
[2022-11-01] MEDS: CIPROFLOXACIN 250 MG TAB PO SCH (16:39)
[2022-11-01] MEDS: METOPROLOL TARTRATE 50 MG TAB PO SCH (22:44)
[2022-11-02] MEDS: CIPROFLOXACIN 250 MG TAB PO SCH ×2 (05:40→17:23)
[2022-11-02] MEDS: APIXABAN 5 MG TABLET PO SCH ×2 (08:02→19:37)
[2022-11-02] MEDS: FUROSEMIDE 20 MG TAB PO SCH (08:04)
[2022-11-02] MEDS: PANTOprazole 40 MG TAB PO SCH (08:04)
[2022-11-02] MEDS: METOPROLOL TARTRATE 50 MG TAB PO SCH ×2 (09:06→19:37)
--- NOTE | 2022-11-02 13:58 | Hospitalist Progress Note ---
Date of Service November 02, 2022 Assessment & Plan (1) DVT, bilateral lower limbs: Plan: EXTENSIVE b/l DVTs noted on dopplers from 2015 then a few weeks ago she developed worsening edema of legs dopplers today show some new, acute-subacute DVTs b/l she had been on Eliquis 2.5mg BID for 1-2 years this is unlikely to be an "Eliquis failure" she likely needs to be on the 5mg BID dosing indefinitely (and now has a 2nd indication for anticoagulation due to a.fib) Dr. Cox spoke informally with our anticoagulation rn clinical documentation specialist, Dr Deidra Tsai we will go back to 10mg BID of Eliquis x 7 days (to complete on 11/07 and then transition to 5 mg bid), then decrease to 5mg BID thereafter - and take indefinitely no indication to switch to coumadin or lovenox at this time she was placed her on heparin infusion while determining best course of action - this was run overnight, then stopped and resumed Eliquis at 10mg CTA chest without central pulmonary emboli; cannot rule out smaller emboli but either way she will be on full-strength anticoagulation Await decision on disposition, though PT input strongly recommends SNF (2) Edema of both legs: Plan: likely 2nd to acute/chronic DVTs, venous insufficiency (has numerous spider veins & varicosities), and pulmonary HTN I cannot rule out an element of acute HFpEF but less likely she did receive IV lasix overnight x 1 HCTZ placed on hold started lasix 20mg po daily, first dose given (3) Atrial fibrillation with RVR: Plan: based on records this is the first time a.fib has been identified she converted back to NSR before transferring from ER to the floor yesterday NSR since then she is already on beta mary, dose was increased by cardio to 50 bid already on Eliquis echo LVSF - nl mild valvular aortic stenosis Rt vent systolic pressure 50-60 cardiology consult appreciated (4) Pulmonary hypertension: Plan: severe PA pressure 50-60 on echo I suspected her prior PE event in 2014 may have contributed; EXTENSIVE b/l PEs at that time can't rule out sleep-disordered breathing contributing to pulmonary HTN will need formal 2-step at discharge to see if ambulatory O2 is needed in light of new onset a.fib and pulmonary HTN; would benefit from following with cardiology post-d/c, as per Dr. St, she is to follow with him, Duong St MD (5) Factor V Leiden mutation: Plan: discovered 2014 during extensive DVT/PE event heterozygous for such reinforced with son that he should be tested discussed ramifications of Factor 5 Leiden mutation (6) Benign hypertension: Plan: BPs are low-normal stop ARB stop HCTZ will be using lasix low-dose for edema, etc (7) Pain of right heel: Plan: check heel x-rays of right heel to r/o fracture, etc wound care consult appreciated this looks like a tissue injury from impaired walking or other injury? would likely benefit from an orthopedic shoe probable Pressure-induced deep tissue injury R plantar foot, POA (8) Asymptomatic bacteriuria: Plan: no symptoms, afebrile, normal wbc count, eating 100% meals would give short term treatment, in pt with reduced ambulation (9) Hiatal hernia: Plan: large minimal symptoms from such no dysphagia or signs of aspiration cont PPI (10) Chronic kidney disease, stage 3a: Plan: baseline CrCl 40s/50s bmp AM for stability (11) Osteoarthritis of knees, bilateral: Plan: severe based on exam findings could consider voltaren gel qid prn (12) Ambulatory dysfunction: Plan: Physical therapy is recommending SNF prior to dc. Discussed with son, Isaac, they would be in favor of this. Pt was resistant when I spoke to her, Isaac felt that she will follow recommendations of her sons. CM notified by Subha nurse navigator, who was updated by me Plan family extensively updated at bedside by Dr. Cox by me to Isaac, over phone 11/01 complex care coordination Admission and Anticipated Discharge Date Admission Date: November 01, 2022 Subjective prior to the visit with patient Dr. Cox had ordered b/l LE venous dopplers -- these returned + for acute/subacute DVT as well as likely chronic DVT during his bedside rounds he went over the doppler results in great detail He discussed her Factor V Leiden mutation that was discovered in 2014 - she was not aware of this finding she told him immediately "I'm not going back on that warfarin." at some point in the past she got "sick of being on warfarin and going to the doctor all the time" and she was ultimately transitioned over to Eliquis 2.5mg BID she reports mild ROLDAN over the last few weeks/months but no worse than baseline it is usually with walking up stairs or doing heavy exertional activity she c/o b/l knee pain - chronic - makes walking difficult we talked about the a.fib that was discovered upon presentation no prior a.fib to her knowledge with respect to urine cx growing bacteria - has good appetite, no fever, no dysuria, no urinary symptoms of any kind, probably asymptomatic UTI, but as pansensitive, will treat with short course, low dose Cipro discussed results from echo, b/l dopplers of legs, CTA chest, and plan of care Review of Systems Review of Systems: gen - no fevers, good appetite (eating 100% meals) cv - no chest pain, no pleuritic pain pulm - no cough, +ROLDAN, no dyspnea at rest GI - no abd pain, occasional reflux only - no LUTS Constitutional: afebrile Respiratory: no sob Cardiovascular: Additional Comments: no chest pain Gastrointestinal: no abdominal pain, no nausea and no vomiting Genitourinary: no dysuria, no difficulty urinating, no urinary frequency, no urinary hesitancy and no urinary urgency Integumentary: Thickened toe nails Right first toe Painful heels Physical Exam Physical Exam: WDWN WF in NAD Neck: supple Respiratory: normal respiratory effort, lungs clear to auscultation Cardiovascular: Reg, 2/6sem Gastrointestinal (Abdomen): soft, nontender Musculoskeletal: rt heel with evidence of pressure wound, POA Results & Data Results & Data Vital Signs (Past 12 Hours) Vital Signs Temp Pulse Pulse Resp BP Pulse Ox O2 Del Method 11/02/22 12:19 36.7 C 70 18 117/76 91 Room Air 11/02/22 08:06 37.5 C 81 18 137/75 94 Nasal Cannula 11/02/22 05:59 74 11/02/22 03:04 37.5 C 68 18 123/73 94 Nasal Cannula O2 Flow Rate 11/02/22 12:19 11/02/22 08:06 2 11/02/22 05:59 11/02/22 03:04 2 PG Care Time/CCT Total # of Minutes Spent Total Time Spent with Patient: Total time spent is greater than 50% in coordination of care (as documented) at patient's floor/unit and/or counseling patient: Coding Level of Care Code 84367 SUB INP/OBS CARE MIN Diagnoses DVT, bilateral lower limbs I82.403 Edema of both legs R60.0 Atrial fibrillation with RVR I48.91 Pulmonary hypertension I27.20 Factor V Leiden mutation D68.51 Benign hypertension I10 Pain of right heel M79.671 Asymptomatic bacteriuria R82.71 Hiatal hernia K44.9 Chronic kidney disease, stage 3a N18.31 Osteoarthritis of knees, bilateral M17.0 Ambulatory dysfunction R26.2
--- NOTE | 2022-11-02 19:13 | Emergency Department Note ---
Impression & Plan Atrial fibrillation with RVR, Edema of both legs ED Provider Note CHIEF COMPLAINT: Bilateral lower extremity edema HISTORY OF PRESENT ILLNESS: This 81-year-old female patient with a history of pulmonary hypertension, CKD, aortic stenosis, atrial fib with RVR, bilateral lower extremity DVTs and factor V Leiden presents to the emergency department with complaints of increasing bilateral lower extremity edema. Patient denies any significant shortness of breath. Patient denies any fevers, chest pain, abdominal pain. Son states she is not happy about being in the hospital and he needed to convince her. The patient has great difficulty elevating her legs as she does live at home by herself. He is concerned about the possibility of cellulitis and increasing edema. REVIEW OF SYSTEMS: A review of systems was performed with positives and pertinent negatives listed in the history of present illness. 10 systems were reviewed and are otherwise negative. ALLERGIES: see below MEDICATIONS: see below PMH: see below SOCIAL HISTORY: see below DDx: DVT, musculoskeletal, infection, joint effusion, trauma, lymphedema, idiopathic, CHF, as well as other pathologies. PHYSICAL EXAM: Vital signs reviewed. General: Chronically ill-appearing 81-year-old female HEENT: No scleral icterus, PERRLA, neck supple. Atraumatic. Cardiovascular: Rapid and irregular, positive systolic ejection murmur. Pulmonary: Clear to auscultation bilaterally, normal work of breathing. Abdomen: Soft, nontender, nondistended, positive bowel sounds. Musculoskeletal: Atraumatic, significant bilateral lower extremity edema, weeping. Mild erythema without warmth. No convincing evidence of cellulitis Neurologic: Patient awake alert and oriented x 3, speech is clear Skin: Warm, dry, as above EMERGENCY DEPARTMENT COURSE/MDM: This patient was evaluated and appeared to be in no significant distress. IV access was obtained and laboratory work was drawn. The patient was placed on the cardiac cath technician noted to be in rapid atrial fibrillation. 5 mg of IV metoprolol ordered. Patient is clearly fluid overloaded on exam. She was given 40 mg of IV Lasix. The patient will require IV diuresis. She also lives at home by herself and will require assistance getting to the bathroom. Patient's son states she is not necessarily compliant and does not like to go to the doctor. I do feel inpatient management is best for this patient. Case was discussed with the hospitalist service who will evaluate the patient for further management. MONITORING: An order for cardiac monitoring was placed and the patient is noted to be in a rapid atrial fibrillation at 107 beats per minute. RADIOLOGY: Chest x-ray to my interpretation reveals cardiomegaly without obvious CHF, large hiatal hernia. Otherwise defer to radiology. EKG: EKG to my interpretation reveals atrial fibrillation with RVR at 105 bpm. Incomplete right bundle branch block, QTc of 401. When compared to previous dated June 16, 2019, atrial fibrillation has replaced a sinus rhythm. DISPOSITION: Admission I have personally spent 30 minutes of critical care time in the direct management of this patient.This was a life/limb threatening event. This 30 minutes is in excess of all separately billable procedures. 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 Beliefs That Will Affect Care: None marital status: Current Living Situation: Alone current occupational status: retired How many Children do You have: 2 Feels Safe at Home: Yes Childhood Exposure to Second-Hand Smoke: No caffeine: Yes (soda ) Dental Care, Regularly: No Physical Activity Frequency: Does not Exercise Seatbelt Use: always Sunscreen Use: No Assistive Devices: Walker and Other Allergies Allergies Allergy/AdvReac Type Severity Reaction Status Date / Time Penicillins Allergy Intermediate Hives Verified 10/30/22 15:07 Home Meds Previous Rx's Medication Instructions Recorded omeprazole 20 mg capsule,delayed 20 mg PO DAILY #90 caps 10/25/22 release apixaban 5 mg tablet (Eliquis) 10 mg PO BID #18 tabs 11/03/22 furosemide 20 mg tablet 20 mg PO QAM #30 tabs 11/03/22 metoprolol tartrate 50 mg tablet 50 mg PO BID #60 tabs 11/03/22 Results & Data (ED) Home Medications Current Medication List: was personally reviewed by me Laboratory Data Attestation: I reviewed the patient's lab results. 11/01/22 01:50 11/01/22 08:03 Lab Results 10/30/22 10/30/22 10/30/22 Range/Units 12:20 12:20 12:30 WBC 8.85 (4.8-10.8) K/ul RBC 4.20 (4.20-5.40) M/uL Hgb 13.4 (12.0-16.0) g/dl Hct 39.7 (37.0-47.0) % MCV 94.5 (80.0-100.0) fL MCH 31.9 (25.0-34.0) pg MCHC 33.8 (32.0-36.0) g/dL RDW Std Deviation 43.8 (36.4-46.3) fL RDW Coeff of Gabbie 12.6 (11.5-14.5) % Plt Count 250 (130-400) K/uL MPV 11.6 (9.4-12.4) fL Immature Gran % (Auto) 0.3 % Neut % (Auto) 80.7 % Lymph % (Auto) 8.9 % Reeves % (Auto) 8.5 % Eos % (Auto) 0.9 % Baso % (Auto) 0.7 % Neut # (Auto) 7.14 H (1.40-6.50) K/uL Lymph # (Auto) 0.79 L (1.2-3.4) K/uL Reeves # (Auto) 0.75 H (0.11-0.59) K/uL Eos # (Auto) 0.08 (0-0.50) K/uL Baso # (Auto) 0.06 (0-0.2) K/uL Immature Gran # (Auto) 0.03 (0.01-0.20) K/uL APTT (21.0-31.0) Seconds PTT Ratio Sodium 140 (136-145) mmol/L Potassium 4.1 (3.5-5.1) mmol/L Chloride 107 (98-107) mmol/L Carbon Dioxide 25 (21-32) mmol/L Anion Gap 8 (3-11) BUN 32 H (6-23) mg/dl Creatinine 1.01 (0.6-1.2) mg/dl Est Cr Clr Drug Dosing 51.1 ml/min Est GFR ( Amer) 60.0 ml/min Est GFR (Non-Af Amer) 51.8 ml/min BUN/Creatinine Ratio 31.7 H (10-20) Glucose 119 H (70-99(Fasting)) mg/dl Calcium 9.8 (8.5-10.1) mg/dl Magnesium 1.5 L (1.7-2.4) mg/dl Total Bilirubin 0.8 (0.2-1.0) mg/dl AST 20 (13-39) U/L ALT 17 (7-52) U/L Alkaline Phosphatase 58 (34-104) U/L Troponin I High Sens 8.4 (0-14) pg/ml Total Protein 6.9 (6.0-8.3) gm/dl Albumin 3.8 (3.4-5.0) gm/dl Globulin 3.1 (2.5-4.0) gm/dl Albumin/Globulin Ratio 1.2 (0.9-2) TSH (0.300-4.500) uIu/ml Urine Color Yellow Urine Appearance Clear (Clear) Urine pH 5.5 (4.5-7.5) Ur Specific [place] 1.008 (1.000-1.030) Urine Protein Negative (Negative) Urine Glucose (UA) Negative (Negative) Urine Ketones Negative (Negative) Urine Blood Negative (Negative) Urine Nitrite Negative (Negative) Urine Bilirubin Negative (Negative) Urine Urobilinogen Negative (Negative) Ur Leukocyte Esterase Trace H (Negative) Urine WBC (Auto) 1-5 (0-5) /hpf Urine RBC (Auto) 0-4 (0-4) /hpf U Hyaline Cast (Auto) 0 (0-5) /lpf U Epithel Cells (Auto) 0-5 (0-5) /lpf Urine Bacteria (Auto) 3+ H (Negative) SARS-CoV-2, RNA, NAAT (NEGATIVE) 10/30/22 10/31/22 10/31/22 Range/Units 15:50 05:56 05:56 WBC 7.52 (4.8-10.8) K/ul RBC 3.63 L (4.20-5.40) M/uL Hgb 11.6 L (12.0-16.0) g/dl Hct 34.3 L (37.0-47.0) % MCV 94.5 (80.0-100.0) fL MCH 32.0 (25.0-34.0) pg MCHC 33.8 (32.0-36.0) g/dL RDW Std Deviation 43.9 (36.4-46.3) fL RDW Coeff of Gabbie 12.5 (11.5-14.5) % Plt Count 234 (130-400) K/uL MPV 11.5 (9.4-12.4) fL Immature Gran % (Auto) % Neut % (Auto) % Lymph % (Auto) % Reeves % (Auto) % Eos % (Auto) % Baso % (Auto) % Neut # (Auto) (1.40-6.50) K/uL Lymph # (Auto) (1.2-3.4) K/uL Reeves # (Auto) (0.11-0.59) K/uL Eos # (Auto) (0-0.50) K/uL Baso # (Auto) (0-0.2) K/uL Immature Gran # (Auto) (0.01-0.20) K/uL APTT (21.0-31.0) Seconds PTT Ratio Sodium 139 (136-145) mmol/L Potassium 3.7 (3.5-5.1) mmol/L Chloride 104 (98-107) mmol/L Carbon Dioxide 29 (21-32) mmol/L Anion Gap 6 (3-11) BUN 29 H (6-23) mg/dl Creatinine 1.02 (0.6-1.2) mg/dl Est Cr Clr Drug Dosing 45.3 ml/min Est GFR ( Amer) 59.3 ml/min Est GFR (Non-Af Amer) 51.2 ml/min BUN/Creatinine Ratio 28.4 H (10-20) Glucose 89 (70-99(Fasting)) mg/dl Calcium 9.3 (8.5-10.1) mg/dl Magnesium 1.7 (1.7-2.4) mg/dl Total Bilirubin (0.2-1.0) mg/dl AST (13-39) U/L ALT (7-52) U/L Alkaline Phosphatase (34-104) U/L Troponin I High Sens (0-14) pg/ml Total Protein (6.0-8.3) gm/dl Albumin (3.4-5.0) gm/dl Globulin (2.5-4.0) gm/dl Albumin/Globulin Ratio (0.9-2) TSH (0.300-4.500) uIu/ml Urine Color Urine Appearance (Clear) Urine pH (4.5-7.5) Ur Specific [place] (1.000-1.030) Urine Protein (Negative) Urine Glucose (UA) (Negative) Urine Ketones (Negative) Urine Blood (Negative) Urine Nitrite (Negative) Urine Bilirubin (Negative) Urine Urobilinogen (Negative) Ur Leukocyte Esterase (Negative) Urine WBC (Auto) (0-5) /hpf Urine RBC (Auto) (0-4) /hpf U Hyaline Cast (Auto) (0-5) /lpf U Epithel Cells (Auto) (0-5) /lpf Urine Bacteria (Auto) (Negative) SARS-CoV-2, RNA, NAAT NEGATIVE (NEGATIVE) 10/31/22 11/01/22 11/01/22 Range/Units 18:39 01:50 01:50 WBC 6.81 (4.8-10.8) K/ul RBC 3.56 L (4.20-5.40) M/uL Hgb 11.3 L (12.0-16.0) g/dl Hct 33.7 L (37.0-47.0) % MCV 94.7 (80.0-100.0) fL MCH 31.7 (25.0-34.0) pg MCHC 33.5 (32.0-36.0) g/dL RDW Std Deviation 43.6 (36.4-46.3) fL RDW Coeff of Gabbie 12.6 (11.5-14.5) % Plt Count 196 (130-400) K/uL MPV 11.4 (9.4-12.4) fL Immature Gran % (Auto) % Neut % (Auto) % Lymph % (Auto) % Reeves % (Auto) % Eos % (Auto) % Baso % (Auto) % Neut # (Auto) (1.40-6.50) K/uL Lymph # (Auto) (1.2-3.4) K/uL Reeves # (Auto) (0.11-0.59) K/uL Eos # (Auto) (0-0.50) K/uL Baso # (Auto) (0-0.2) K/uL Immature Gran # (Auto) (0.01-0.20) K/uL APTT 44.2 H (21.0-31.0) Seconds PTT Ratio 1.6 Sodium (136-145) mmol/L Potassium (3.5-5.1) mmol/L Chloride (98-107) mmol/L Carbon Dioxide (21-32) mmol/L Anion Gap (3-11) BUN (6-23) mg/dl Creatinine (0.6-1.2) mg/dl Est Cr Clr Drug Dosing ml/min Est GFR ( Amer) ml/min Est GFR (Non-Af Amer) ml/min BUN/Creatinine Ratio (10-20) Glucose (70-99(Fasting)) mg/dl Calcium (8.5-10.1) mg/dl Magnesium 1.5 L (1.7-2.4) mg/dl Total Bilirubin (0.2-1.0) mg/dl AST (13-39) U/L ALT (7-52) U/L Alkaline Phosphatase (34-104) U/L Troponin I High Sens (0-14) pg/ml Total Protein (6.0-8.3) gm/dl Albumin (3.4-5.0) gm/dl Globulin (2.5-4.0) gm/dl Albumin/Globulin Ratio (0.9-2) TSH (0.300-4.500) uIu/ml Urine Color Urine Appearance (Clear) Urine pH (4.5-7.5) Ur Specific [place] (1.000-1.030) Urine Protein (Negative) Urine Glucose (UA) (Negative) Urine Ketones (Negative) Urine Blood (Negative) Urine Nitrite (Negative) Urine Bilirubin (Negative) Urine Urobilinogen (Negative) Ur Leukocyte Esterase (Negative) Urine WBC (Auto) (0-5) /hpf Urine RBC (Auto) (0-4) /hpf U Hyaline Cast (Auto) (0-5) /lpf U Epithel Cells (Auto) (0-5) /lpf Urine Bacteria (Auto) (Negative) SARS-CoV-2, RNA, NAAT (NEGATIVE) 11/01/22 11/01/22 11/01/22 Range/Units 01:50 08:03 08:03 WBC (4.8-10.8) K/ul RBC (4.20-5.40) M/uL Hgb (12.0-16.0) g/dl Hct (37.0-47.0) % MCV (80.0-100.0) fL MCH (25.0-34.0) pg MCHC (32.0-36.0) g/dL RDW Std Deviation (36.4-46.3) fL RDW Coeff of Gabbie (11.5-14.5) % Plt Count (130-400) K/uL MPV (9.4-12.4) fL Immature Gran % (Auto) % Neut % (Auto) % Lymph % (Auto) % Reeves % (Auto) % Eos % (Auto) % Baso % (Auto) % Neut # (Auto) (1.40-6.50) K/uL Lymph # (Auto) (1.2-3.4) K/uL Reeves # (Auto) (0.11-0.59) K/uL Eos # (Auto) (0-0.50) K/uL Baso # (Auto) (0-0.2) K/uL Immature Gran # (Auto) (0.01-0.20) K/uL APTT 54.4 H* (21.0-31.0) Seconds PTT Ratio 2.0 Sodium 138 (136-145) mmol/L Potassium 3.8 (3.5-5.1) mmol/L Chloride 99 (98-107) mmol/L Carbon Dioxide 34 H (21-32) mmol/L Anion Gap 5 (3-11) BUN 23 (6-23) mg/dl Creatinine 0.90 (0.6-1.2) mg/dl Est Cr Clr Drug Dosing 51.4 ml/min Est GFR ( Amer) 69.0 ml/min Est GFR (Non-Af Amer) 59.5 ml/min BUN/Creatinine Ratio 25.6 H (10-20) Glucose 104 H (70-99(Fasting)) mg/dl Calcium 9.7 (8.5-10.1) mg/dl Magnesium (1.7-2.4) mg/dl Total Bilirubin (0.2-1.0) mg/dl AST (13-39) U/L ALT (7-52) U/L Alkaline Phosphatase (34-104) U/L Troponin I High Sens (0-14) pg/ml Total Protein (6.0-8.3) gm/dl Albumin (3.4-5.0) gm/dl Globulin (2.5-4.0) gm/dl Albumin/Globulin Ratio (0.9-2) TSH 2.728 (0.300-4.500) uIu/ml Urine Color Urine Appearance (Clear) Urine pH (4.5-7.5) Ur Specific [place] (1.000-1.030) Urine Protein (Negative) Urine Glucose (UA) (Negative) Urine Ketones (Negative) Urine Blood (Negative) Urine Nitrite (Negative) Urine Bilirubin (Negative) Urine Urobilinogen (Negative) Ur Leukocyte Esterase (Negative) Urine WBC (Auto) (0-5) /hpf Urine RBC (Auto) (0-4) /hpf U Hyaline Cast (Auto) (0-5) /lpf U Epithel Cells (Auto) (0-5) /lpf Urine Bacteria (Auto) (Negative) SARS-CoV-2, RNA, NAAT (NEGATIVE) Administered Medications Discontinued Medications Acetaminophen (Acetaminophen 325 Mg Tab) 650 mg PO Q4H PRN PRN Reason: Pain or Fever Stop: 11/30/22 03:26 Last Admin: 10/31/22 13:25 Dose: 650 mg Documented By: Admin: 10/31/22 04:10 Dose: 650 mg Documented By: TANNER Apixaban (Apixaban 2.5 Mg Tab) 2.5 mg PO BID [facility] Stop: 11/29/22 20:59 Last Admin: 10/31/22 08:00 Dose: 2.5 mg Documented By: Admin: 10/30/22 21:05 Dose: 2.5 mg Documented By: TANNER Apixaban (Apixaban 5 Mg Tablet) 10 mg PO BID [facility] Stop: 11/07/22 21:01 Last Admin: 11/03/22 08:52 Dose: 10 mg Documented By: Admin: 11/02/22 19:37 Dose: 10 mg Documented By: Admin: 11/02/22 08:02 Dose: 10 mg Documented By: Admin: 11/01/22 22:44 Dose: 10 mg Documented By: Admin: 11/01/22 09:48 Dose: 10 mg Documented By: MG Ciprofloxacin (Ciprofloxacin 250 Mg Tab) 250 mg PO Q12H JIHAN Stop: 11/06/22 15:59 Last Admin: 11/03/22 05:09 Dose: 250 mg Documented By: Admin: 11/02/22 17:23 Dose: 250 mg Documented By: Admin: 11/02/22 05:40 Dose: 250 mg Documented By: Admin: 11/01/22 16:39 Dose: 250 mg Documented By: MG Furosemide (Furosemide 40 Mg/4 Ml Vial) 40 mg IV ONE ONE Stop: 10/30/22 12:04 Last Admin: 10/30/22 12:16 Dose: 40 mg Documented By: MELE Furosemide (Furosemide 20 Mg Tab) 20 mg PO QAM JIHAN Stop: 11/30/22 19:29 Last Admin: 11/03/22 08:51 Dose: 20 mg Documented By: Admin: 11/02/22 08:04 Dose: 20 mg Documented By: Admin: 11/01/22 09:42 Dose: 20 mg Documented By: Admin: 10/31/22 22:40 Dose: 20 mg Documented By: JOEY Hydrochlorothiazide (Hydrochlorothiazide 25 Mg Tab) 12.5 mg PO DAILY JIHAN Stop: 11/30/22 08:59 Last Admin: 10/31/22 08:00 Dose: 12.5 mg Documented By: MG Magnesium Sulfate/Dextrose (Magnesium Sulfate / D5w) 1 gm in 100 mls @ 200 mls/hr IV Q30M JIHAN Stop: 10/30/22 15:21 Last Infusion: 10/30/22 15:58 Dose: 0 mls/hr Documented By: Admin: 10/30/22 15:14 Dose: 200 mls/hr Documented By: Infusion: 10/30/22 15:04 Dose: 200 mls/hr Documented By: Admin: 10/30/22 14:34 Dose: 200 mls/hr Documented By: MELE Heparin Sodium/Dextrose (Heparin Sodium/Dextrose) 25,000 units in 500 mls @ 25 mls/hr IV .Q20H JIHAN; Protocol Stop: 11/01/22 09:00 Last Titration: 11/01/22 09:20 Dose: 0 units/hr, 0 mls/hr Documented By: MG Co-signed By: ALA Titration: 11/01/22 06:50 Dose: 1,250 units/hr, 25 mls/hr Documented By: MG Co-signed By: SMS Titration: 10/31/22 20:35 Dose: 1,250 units/hr, 25 mls/hr Documented By: SMS Co-signed By: CB Titration: 10/31/22 19:18 Dose: 1,200 units/hr, 24 mls/hr Documented By: SMS Co-signed By: MG Admin: 10/31/22 13:01 Dose: 1,200 units/hr, 24 mls/hr Documented By: MG Co-signed By: MTM Magnesium Sulfate/Dextrose (Magnesium Sulfate / D5w) 1 gm in 100 mls @ 50 mls/hr IV Q2H [facility] Stop: 11/01/22 10:44 Last Infusion: 11/01/22 13:14 Dose: 0 mls/hr Documented By: Admin: 11/01/22 09:50 Dose: 50 mls/hr Documented By: Infusion: 11/01/22 09:50 Dose: 50 mls/hr Documented By: Admin: 11/01/22 08:05 Dose: 50 mls/hr Documented By: MG Ioversol (Optiray 320 125ml) 117 ml IV ONCE ONE Stop: 10/31/22 16:39 Last Admin: 10/31/22 16:38 Dose: 117 ml Documented By: MIRTHA Losartan Potassium (Losartan Potassium 50 Mg Tab) 100 mg PO DAILY JIHAN Stop: 11/30/22 08:59 Last Admin: 10/31/22 07:59 Dose: 100 mg Documented By: MG Metoprolol Tartrate (Metoprolol Tartrate 1 Mg/Ml Vial) 5 mg IV NOW STA Stop: 10/30/22 12:22 Last Admin: 10/30/22 12:24 Dose: 5 mg Documented By: MELE Metoprolol Tartrate (Metoprolol Tartrate 25 Mg Tab) 25 mg PO BID JIHAN Stop: 11/29/22 20:59 Last Admin: 11/01/22 09:41 Dose: 25 mg Documented By: Admin: 10/31/22 22:42 Dose: Not Given Documented By: Admin: 10/31/22 08:00 Dose: 25 mg Documented By: Admin: 10/30/22 21:05 Dose: 25 mg Documented By: TANNER Metoprolol Tartrate (Metoprolol Tartrate 50 Mg Tab) 50 mg PO BID JIHAN Stop: 12/01/22 20:59 Last Admin: 11/03/22 08:52 Dose: 50 mg Documented By: Admin: 11/02/22 19:37 Dose: 50 mg Documented By: Admin: 11/02/22 09:06 Dose: 50 mg Documented By: Admin: 11/01/22 22:44 Dose: 50 mg Documented By: JOEY Miscellaneous (Stop Order: Stop Iv Heparin Infusion When...) 1 each N/A TODAY@0900 ONE Stop: 11/01/22 09:01 Last Admin: 11/01/22 09:43 Dose: 1 each Documented By: MG Nystatin (Nystatin Powder 15gm Btl) 1 appln EXT TID STA Stop: 10/30/22 12:31 Last Admin: 10/30/22 13:13 Dose: 1 appln Documented By: GGG Pantoprazole Sodium (Pantoprazole 40 Mg Tab) 40 mg PO NOW STA Stop: 10/31/22 17:55 Last Admin: 10/31/22 18:13 Dose: 40 mg Documented By: MG Pantoprazole Sodium (Pantoprazole 40 Mg Tab) 40 mg PO QAM JIHAN Stop: 12/01/22 08:59 Last Admin: 11/03/22 08:51 Dose: 40 mg Documented By: Admin: 11/02/22 08:04 Dose: 40 mg Documented By: Admin: 11/01/22 09:42 Dose: 40 mg Documented By: MG Discharge Plan Visit Data Chief Complaint: Edema To Extremity Stated Complaint: EDEMA AND WEEPING LEGS ED Provider: La Lopez Discharge Problem: Atrial fibrillation with RVR, Edema of both legs Patient Disposition: Admitted As Inpatient Condition: Good Discharge Instructions Interventions: ED Discharge Assessment Last Done: 10/30/22 17:06
[2022-11-03] MEDS: CIPROFLOXACIN 250 MG TAB PO SCH (05:09)
[2022-11-03] MEDS: FUROSEMIDE 20 MG TAB PO SCH (08:51)
[2022-11-03] MEDS: PANTOprazole 40 MG TAB PO SCH (08:51)
[2022-11-03] MEDS: APIXABAN 5 MG TABLET PO SCH (08:52)
[2022-11-03] MEDS: METOPROLOL TARTRATE 50 MG TAB PO SCH (08:52)
--- NOTE | 2022-11-03 13:39 | Discharge Summary ---
Date of Service November 03, 2022 Admission HPI Per Admitting Provider Nati Stewart is a 81 year old female with a past medical history of Factor V Leiden with previous VTE (PE and DVT) on Eliquis 2.5mg BID, HTN, Obesity and GERD who presented to the ER today for complaints of persistent lower extremity selling and hard to ambulate due to the swelling and also right heel pain. Patient tells me that her leg swelling is mostly chronic but has significantly increased over the past 3 weeks. She states both lower legs have been oozing serous fluid for the past 2-3 weeks. Patient is noted to be up almost 40# from last year. She denies any chest pain, cough, fever, urinary symptoms. She admits to some slight SOB with walking fast, but this is not new. She denies ever having A Fib in the past. I do not see any previous A Fib on previous EKGs and she has not had any echo in this EMR system. Principal Diagnosis Bilateral LE DVT Discharge Exam WDWN WF in NAD Constitutional afebrile Respiratory normal respiratory effort, lungs clear to auscultation Cardiovascular Reg 2/6 matti Gastrointestinal (Abdomen) soft, nondistended Musculoskeletal chronic LE stasis changes Discharge Data Allergies Allergy/AdvReac Type Severity Reaction Status Date / Time Penicillins Allergy Intermediate Hives Verified 10/30/22 15:07 Consultations 10/30/22 15:01 ED Decision to Admit Stat 11/01/22 08:00 Consult Cardiology Routine seen by Dr. Duong Mehta Ordered Studies 10/31/22 09:22 US venous doppler LE BI Urgent 10/31/22 14:31 CT angio chest PE protocol Routine Hospital Course (1) DVT, bilateral lower limbs: (1) DVT, bilateral lower limbs: Plan: EXTENSIVE b/l DVTs noted on dopplers from 2014 then a few weeks ago she developed worsening edema of legs dopplers on day of admission showed new, acute-subacute DVTs b/l she had been on Eliquis 2.5mg BID for 1-2 years this is unlikely to be an "Eliquis failure" she likely needs to be on the 5mg BID dosing indefinitely (and now has a 2nd indication for anticoagulation due to a.fib) Dr. Cox spoke informally with our anticoagulation clinic office coordinator, Dr Deidra Tsai we will go back to 10mg BID of Eliquis x 7 days (to complete on 11/07 and then transition to 5 mg bid), then decrease to 5mg BID thereafter - and take indefinitely no indication to switch to coumadin or lovenox at this time she was placed her on heparin infusion while determining best course of action - this was run overnight, then stopped and resumed Eliquis at 10mg CTA chest without central pulmonary emboli; cannot rule out smaller emboli but either way she will be on full-strength anticoagulation (2) Edema of both legs: likely 2nd to acute/chronic DVTs, venous insufficiency (has numerous spider veins & varicosities), and pulmonary HTN I cannot rule out an element of acute HFpEF but less likely she did receive IV lasix x 1 HCTZ placed on hold started lasix 20mg po daily, first dose given (3) Atrial fibrillation with RVR: based on records this is the first time a.fib has been identified she converted back to NSR before transferring from ER to the floor yesterday NSR since then she is already on beta mary, dose was increased by cardio to 50 bid already on Eliquis echo LVSF - nl mild valvular aortic stenosis Rt vent systolic pressure 50-60 cardiology consult appreciated (4) Pulmonary hypertension: severe PA pressure 50-60 on echo I suspected her prior PE event in 2014 may have contributed; EXTENSIVE b/l PEs at that time can't rule out sleep-disordered breathing contributing to pulmonary HTN will need formal 2-step at discharge to see if ambulatory O2 is needed in light of new onset a.fib and pulmonary HTN; would benefit from following with cardiology post-d/c, as per Dr. St, she is to follow with him, Duong St MD (5) Factor V Leiden mutation: discovered 2014 during extensive DVT/PE event heterozygous for such reinforced with son that he should be tested discussed ramifications of Factor 5 Leiden mutation (6) Benign hypertension: BPs are low-normal stop ARB stop HCTZ will be using lasix low-dose for edema, etc (7) Pain of right heel: check heel x-rays of right heel to r/o fracture, etc wound care consult appreciated this looks like a tissue injury from impaired walking or other injury? would likely benefit from an orthopedic shoe probable Pressure-induced deep tissue injury R plantar foot, POA (8) Asymptomatic bacteriuria: no symptoms, afebrile, normal wbc count, eating 100% meals would give short term treatment, in pt with reduced ambulation Cipro 250 mg bid was given during hospitalization, would not continue post dc, recheck UA post dc (9) Hiatal hernia: minimal symptoms from such no dysphagia or signs of aspiration cont PPI (10) Chronic kidney disease, stage 3a: baseline CrCl 40s/50s bmp AM for stability (11) Osteoarthritis of knees, bilateral: severe based on exam findings could consider voltaren gel qid prn (12) Ambulatory dysfunction: will dc to [facility] Total Time Total Time Spent Total Time Spent (In Minutes): 55 Discharge Plan Discharge Items Patient Disposition: Transfer Inpatient Rehab Fac Reason For Visit: edema, a fib with rvr Discharge Diagnosis: DVT Condition on Discharge: Good Health Concerns: weakness, ambulatory ability Activity: As commented below Activity Comment: with ssistance Lifting: Wait until after follow-up appointment Bathing: No limitations Driving/Machine Use: no driving Non-emergency contact: Primary Care Provider Call non-emergency contact if: you have any medication questions Follow-up/Referrals: Aruna Gaitan MD [Primary Care Provider] - Diet: Heart Healthy Fluids: 1800ml (7 cups) Addtl Attending Provider Instructions: Eliquis is 10 mg bid until 11/07, then decrease to 5mg bid to continue indefinitely low dose Lasix has been ordered recheck CBC, UA and BMP in 5 days Addtl Cleat Blanker Provider Instructions: Will need follow up with Dr. Duong St in future (4-6 weeks) Pending Studies at Discharge: No Stand-Alone Forms: My [facility] Skilled Items Patient informed of condition?: Yes DNR: No Discharge Level of Care: Acute rehab Communicable Disease: No Discharge Prognosis: Stable Lines: None Urinary Catheter: No Medications and DC Order Prescriptions: New Eliquis 5 mg Tablet 10 mg PO BID Qty: 18 0RF Rx Instructions: then decrease to 5 mg bid metoprolol tartrate 50 mg Tablet 50 mg PO BID Qty: 60 0RF furosemide 20 mg Tablet 20 mg PO QAM Qty: 30 0RF Continued omeprazole 20 mg capsule,delayed release(DR/EC) 20 mg PO DAILY Qty: 90 3RF Discontinued metoprolol tartrate 25 mg tablet 25 mg PO BID Qty: 60 11RF losartan-hydrochlorothiazide 100-12.5 mg tablet 1 tab PO DAILY Qty: 90 3RF Eliquis 2.5 mg tablet 2.5 mg PO BID Qty: 60 4RF Rx Instructions: START ONLY AFTER STOPPING COUMADIN AND INR IS < 2.0 Discharge Orders: Discharge Order (Routine); Ordered 11/03/22 Ordered By: Jules Christian Admission Data Admit Date/Time: 11/01/22 08:10 Attending Provider: Jules Christian Admit Provider: Luis A Muse Primary Care Provider: Aruna Gaitan Other Providers: Luis A Muse ; Jakob St ; Brennen Cox [facility],Care Coding Level of Care Code 53112 INP/OBS DISCH >30 MIN Diagnoses DVT, bilateral lower limbs I82.403 Edema of both legs R60.0 Atrial fibrillation with RVR I48.91 Pulmonary hypertension I27.20 Factor V Leiden mutation D68.51 Benign hypertension I10 Pain of right heel M79.671 Asymptomatic bacteriuria R82.71 Hiatal hernia K44.9 Chronic kidney disease, stage 3a N18.31 Osteoarthritis of knees, bilateral M17.0 Ambulatory dysfunction R26.2
== END 2022-11-03 16:00 | DRG 299 ==
LOC: 2W 11:25 → ED 11:25 → SUATTDRO 15:34 → 2W 17:06